=== PATIENT | female | born 1990 | race Caucasian/White ===

== ENCOUNTER 2018-10-20 16:14 | Emergency (ER) | payer SELFPAY ==
[2018-10-20 16:37] VITALS: BP 140/100
--- NOTE | 2018-10-20 18:07 | UC ---
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 She sustained a laceration to the bridge of her nose. No LOC. Patient denies any visual disturbances, headache or dizziness. Up-to-date on tetanus vaccine. - History Of Current Complaint Chief Complaint: UCLaceration Stated Complaint: FACIAL LAC Time Seen by Provider: 10/20/18 17:33 Hx Obtained From: Patient Hx Last Menstrual Period: 10/18/18 Laceration Location: Face - NOSE Mechanism Of Injury: Blunt Trauma Onset/Duration: Sudden Onset, Still Present Severity: Mild Pain Intensity: 2 Pain Scale Used: 0-10 Numeric Related History: Occupational Injury - Allergies/Home Medications Allergies/Adverse Reactions: Allergies Allergy/AdvReac Type Severity Reaction Status Date / Time No Known Allergies Allergy Verified 10/20/18 16:37 Home Medications: Home Medications DULoxetine DR CAP* [Cymbalta CAP*] 10/20/18 [History] Rizatriptan (NF) [Maxalt(NF)] PRN 10/20/18 [History] PMH/Surg Hx/FS Hx/Imm Hx - Additional Past Medical History Additional PMH: FIBROMYALGIA Neurological History: Migraine Psychological History: Depression - Surgical History Surgical History: Yes Surgery Procedure, Year, and Place: Pyloric Stenosis -abdominal surgery at 1 week of age - Family History Known Family History: Positive: Non-Contributory - Social History Alcohol Use: None Substance Use Type: None Smoking Status (MU): Never Smoked Tobacco - Immunization History Most Recent Influenza Vaccination: fall 2014 Most Recent Tetanus Shot: STATES UP TO DATE Review of Systems All Other Systems Reviewed And Are Negative: Yes Constitutional: Positive: Negative Skin: Positive: Other - LAC BRIDGE OF NOSE Respiratory: Positive: Negative Cardiovascular: Positive: Negative Gastrointestinal: Positive: Negative Neurological: Positive: Negative Physical Exam Triage Information Reviewed: Yes Appearance: Well-Appearing, No Pain Distress, Well-Nourished Vital Signs: Initial Vital Signs Temp 99.4 F 10/20/18 16:34 Pulse 108 10/20/18 16:34 Resp 16 10/20/18 16:34 BP 140/100 10/20/18 16:34 Pulse Ox 100 10/20/18 16:34 Vital Signs Reviewed: Yes Eyes: Positive: Conjunctiva Clear ENT: Positive: Hearing grossly normal, Other - NO SEPTAL HEMATOMA. GOOD AIR MVMT THROUGH BOTH NARES. NOSE APPEARS STRAIGHT. MILDLY TENDER OVER AREA OF LACERATION. NO BRUISING OR SWELLING. Negative: Nasal congestion, Nasal drainage Neck: Positive: Supple Respiratory: Positive: No respiratory distress, No accessory muscle use Cardiovascular: Positive: Pulses Normal Abdomen Description: Positive: Soft Musculoskeletal: Positive: No Edema Neurological: Positive: Alert Psychological: Positive: Age Appropriate Behavior Skin: Positive: Other - 11MM LINEAR LAC BRIDGE OF NOSE. EDGES WELL APPROXIMATED.. Negative: Rashes Laceration Repair - Laceration Repair 1 Description: Linear Laceration Size After Repair: Length (cm) - 1.1CM, Width (mm) - 0MM, Depth (mm) - 1MM Modified For Repair: No Cleansing Completed Via Routine Prep: Yes Closure Material: Skin Adhesive, SteriStrips Laceration Course/Dx - Course/Dx Course Of Treatment: NO INDICATION FOR IMAGING OF NASAL BONES. LACERATION REPAIRED WITH GLUE AND STERISTRIPS. F/U IF NEEDED. - Diagnosis Provider Diagnosis: Laceration of nose Discharge - Sign-Out/Discharge Documenting (check all that apply): Patient Departure All imaging exams completed and their final reports reviewed: No Studies - Discharge Plan Condition: Stable Disposition: HOME Patient Education Materials: Laceration (ED) Referrals: Erica Sauceda MD [Primary Care Provider] - If Needed Additional Instructions: SEEK FOLLOW-UP IF YOU DEVELOP SPREADING REDNESS OF THE SKIN, PURULENT DRAINAGE, FEVER, INCREASED PAIN OR ANY OTHER CONCERNING SYMPTOMS. THE STERISTRIPS WILL FALL OFF ON THEIR OWN IN THE NEXT 1-2 WEEKS. DO NOT PUT ANY OINTMENT ON TOP OF THEM. DO NOT SUBMERGE IN WATER FOR PROLONGED PERIOD OF TIME. OKAY FOR BRIEF SHOWER AFTER 24 HOURS AND THEN BE SURE TO ALLOW TO DRY COMPLETELY. - Billing Disposition and Condition Condition: STABLE Disposition: Home
== END 2018-10-20 18:32 | disposition home or self-care (01) ==
LOC: UCEAST 16:14
DX: S01.21XA Laceration without foreign body of nose, initial encounter (principal); W20.8XXA Other cause of strike by thrown, projected or falling object, initial encounter; Y92.9 Unspecified place or not applicable; Y99.0 Civilian activity done for income or pay
CPT/HCPCS: 12011; 99211; G0463